=== PATIENT | female | born 1950 | race Caucasian/White ===

== ENCOUNTER 2018-02-16 09:14 | Emergency (ER) | payer OTHER ==
[2018-02-16 09:15] VITALS: BP 112/48
[2018-02-16 09:20] VITALS: BMI 32.8
--- NOTE | 2018-02-16 09:48 | DR.EXTPAIN ---
HPI - Time seen Time seen: 09:42 - PCP Primary Care Physician: bennett - Complaint/Symptoms Chief Complaint Doctor Comments: Patient admits to falling at homw on yesterday , today her right wrist is swollen and tender. She admits to a pain level of 7 s/p Tramadol. Chief Complaint:: pt stated she fell at home yesterday and landed on her right wrist. - Source History Provided: Patient - Mode of arrival Mode of Arrival: Ambulatory - Timing Onset of Chief Complaint: 02/16/18 PMH - PMH Past Medical History: Yes Past Medical History: Anxiety, Hypertension Past Surgical History: Yes Surgical History: Abdominal Surgery, [employer] Surgery, Hysterectomy, Ortho Surgery, Tonsillectomy - Family History History of Family Medical Conditions: Yes Family Medical History: Cancer - Social History Does patient currently use any type of tobacco product: No Have you used tobacco products in the last 12 months: No Type of Tobacco Use: None Does any household member use tobacco: No Alcohol Use: None Do you use any recreational Drugs:: No Lives With: Family Lives Where: Home - infectious screening In the last 2 months have you had wt loss of >10#?: NO Have you had fever, night sweats or hemotysis?: No Have you traveled outside the country in the last 6 months?: No Isolation: Standard ROS - Review of Systems Eyes: No Symptoms Reported ENTM: No Symptoms Reported Respiratoy: No Symptoms Reported Cardiovascular: No Symptoms Reported Gastrointestinal/Abdominal: No Symptoms Reported Genitourinary: No Symptoms Reported Neurological: No Symptoms Reported Musculoskeletal: No Symptoms Reported Integumentary: No Symptoms Reported Hematologic/Lymphatic: No Symptoms Reported Endocrine: No Symptoms Reported Psychiatric: No Symptoms Reported All Other Systems: Reviewed and Negative PE - Vital Signs Vitals: Temperature 98.9 F Pulse Rate 61 Respiratory Rate 16 Blood Pressure [Left Arm] 127/57 Blood Pressure 112/48 - General Limitations: No Limitations General Appearance: Alert - Head Head Exam: Normal Inspection, Atraumatic - Eyes Eye exam: Normal Appearance, PERRL, EOMI - ENT ENT Exam: Normal Exam - Neck Neck Exam: Normal Inspection, Full ROM - Chest Chest Inspection: Normal Inspection - Respiratory Respiratory Exam: Normal Lung Sounds Bilat Respiratory Exam: Bilateral Clear to Auscultation - Cardiovascular Cardiovascular Exam: Regular Rate, Normal Rhythm - Abdominal Exam Abdominal Exam: Normal Inspection, Normal Bowel Sounds Abdominal Tenderness: negative: RUQ, RLQ, LUQ, LLQ, Epigastrium, Suprapubic, Diffuse, Mild, Moderate, Severe, Other - Extremities Extremities Exam: Normal Inspection, Tenderness (right wrist to palpation with decreased ROM) - Upper Extremities Shoulder Exam: Normal Inspection Arm Exam: Normal Inspection Elbow Exam: Normal Inspection Forearm Exam: Normal Inspection Hand Exam: Normal Inspection Neuromotor Exam: Normal Exam Neurosensory Exam: Normal Exam Hand Tendon Exam: Flexor Digitorium Profundus (Location) Upper Ext. Vascular Exam: Capillary Refill - Lower Extremities Hip/Pelvis Exam: Normal Inspection Upper Leg Exam: Normal Inspection Knee Exam: Full ROM Lower Leg Exam: Normal Inspection Ankle Exam: Normal Inspection Foot/Toe Exam: Normal Inspection Neurovascular/Tendon Exam: Normal Capillary Refill Gait Exam: Observed and Normal - Back Back Exam: Normal Inspection - Neurological Neurological Exam: Alert, Oriented X3, CN II-XII Intact - Psychiatric Psychiatric Exam: Normal Affect - Skin Skin Exam: Warm, Dry, Intact Type of Lesion: Rash, Abscess, Laceration Course - Reevaluation 1st: Improved (OCL right wrist) ROR - XRAY XRAY Interpreted by: Radiologist (Findings right wrist: There is a transverse fracture tragversing the distal radial metaphysis. There is associated volar angulation of the distal fragment in relation to the proximal fragment. Mild impaction at the fracture site is noted as well. There is diffuse solt tissue swelling. The distal ulna is intactl. The carpal bones appear intact.) - Diagnosis Discharge Problem: Wrist fracture, right Qualifiers: Encounter type: initial encounter Fracture type: closed Qualified Code(s): S62.101A - Fracture of unspecified carpal bone, right wrist, initial encounter for closed fracture - Discharge Plan Condition: Stable - Follow ups/Referrals Follow ups/Referrals: Chris Welch [Primary Care Provider] - 3 days - Instructions
--- NOTE | 2018-02-16 10:14 | RAD ---
HISTORY: Fall, right wrist injury Study: Three-view right wrist Comparison: None Findings: There is a transverse fracture traversing the distal radial metaphysis. There is associated volar ang ulation of the distal fragment in relation to the proximal fragment. Mild impaction at the fracture s ite is noted as well. There is diffuse soft tissue swelling. The distal ulna is intact. The carpal les benjamin appear intact. IMPRESSION: 1. Transverse and mildly impacted fracture involving the distal radial metaphysis with volar angulat ion. Reported By:
== END 2018-02-16 10:39 | disposition home or self-care (01) | DRG 563 ==
LOC: ER 09:22
PROC: 2W3CX1Z Immobilization of Right Lower Arm using Splint (ICD-10-PCS; principal; 2018-02-16)
DX: S52.591A Other fractures of lower end of right radius, initial encounter for closed fracture (principal); W19.XXXA Unspecified fall, initial encounter; Y92.009 Unspecified place in unspecified non-institutional (private) residence as the place of occurrence of the external cause; I10 Essential (primary) hypertension
CPT/HCPCS: 29125; 73100; 99282